=== PATIENT | female | born 1995 | race Caucasian/White ===

== ENCOUNTER 2017-09-11 09:10 | Emergency (ER) | payer BC, OTHER ==
[~2017-09-11] VITALS: Ht 157.5 cm; Wt 66.4 kg
[~2017-09-11 09:10] MED LIST: ENDOCET 5-3251 EACH PO; FERROUS SULFAT325 MG PO; FLOVENT DISKUS1 DIS2 IH; LORAZEPAM0.5 MG PO; PRENATAL TABLE1 EAC3 PO; TYLENOL EXTRA500 MG PO; ZOLOFT25 MG PO
[2017-09-11 12:56] LABS: BASOPHIL (%) 0.2 % (0-1); EOSINOPHIL (%) 1.2 % (0-5); EOSINOPHIL COUNT 0.1 K/uL (0-0.3); HEMATOCRIT 38.5 % (36.0-46.0); HEMOGLOBIN 13.1 G/DL (11.9-15.5); IMMATURE GRANULOCYTE (%) 0.1 % (0.0-0.7); LYMPHOCYTE (%) 23.6 % (15-42); MCH 30.6 PG (29.0-34.0); MONOCYTE (%) 4.7 % (3-12); MONOCYTE COUNT 0.4 K/uL (0-0.8); NEUTROPHIL (%) 70.2 % (45-76); NEUTROPHIL COUNT 5.8 K/uL (1.8-6.4); PLATELET COUNT 298 K/uL (156-360); RBC DIS.WIDTH-CV 11.9 % (11.8-14.6); RED BLOOD COUNT 4.28 M/uL (3.80-5.20); WHITE BLOOD COUNT 8.3 K/uL (4.1-10.2)
[2017-09-11 13:03] LABS: INTER. NORMALIZED RATIO 1.1
[2017-09-11 13:05] LABS: PTT 28.3 SEC (25-37)
[2017-09-11 13:08] LABS: ALBUMIN 4.1 g/dL (3.2-4.8)
[2017-09-11 13:09] LABS: CHLORIDE 108 mEq/L (99-109); POTASSIUM 3.8 mEq/L (3.7-5.4); SODIUM 137 mEq/L (136-147)
[2017-09-11 13:11] LABS: GLUCOSE 128 mg/dL (70-99); TOTAL PROTEIN 6.9 g/dL (6.4-8.3)
[2017-09-11 13:13] LABS: TOTAL BILIRUBIN 0.3 mg/dL (0.0-1.0)
[2017-09-11 13:15] LABS: ALKALINE PHOSPHATASE 56 IU/L (3-129); CREATININE 0.8 mg/dL (0.6-1.3); GFR ESTIMATE (CALCULATED) > 59 mL/min/
[2017-09-11 13:16] LABS: AST (GOT) 14 IU/L (2-34); UREA NITROGEN (BUN) 10 mg/dL (9-23)
[2017-09-11 13:18] LABS: ALT (GPT) 7 IU/L (3-49)
[2017-09-11 13:19] LABS: TROP-I INTERPRETATION NEGATIVE; TROPONIN-I < 0.01 ng/mL (0.0-0.30)
[2017-09-11 13:46] VITALS: BP 146/101
== END 2017-09-11 13:47 | disposition home or self-care (01) ==
LOC: EME 09:10
PROVIDERS: Emergency Medicine
DX: M62.831 Muscle spasm of calf (principal); R07.89 Other chest pain
CPT/HCPCS: 71046; 80053; 84484; 85025; 85610; 85730; 93005; 93971